=== PATIENT | female | born 1960 | race Caucasian/White ===

== ENCOUNTER 2024-01-01 09:02 | Outpatient (CLI) | payer OTHER | END 2024-01-01 09:03 | disposition home or self-care (01) | LOC: CSHMAMMO 09:02 | PROVIDERS: ATTEND Physician Assistant | DX: Z12.31 Encounter for screening mammogram for malignant neoplasm of breast (principal) | CPT/HCPCS: 77063; 77067 ==

== ENCOUNTER 2025-02-12 14:36 | Outpatient (CLI) | payer MEDICARE | END 2025-02-12 14:37 | disposition home or self-care (01) | LOC: CSHMAMMO 14:36 | PROVIDERS: ATTEND Physician Assistant | DX: Z12.31 Encounter for screening mammogram for malignant neoplasm of breast (principal) | CPT/HCPCS: 77063; 77067 ==